=== PATIENT | female | born 1995 | race Caucasian/White ===

== ENCOUNTER 2020-08-29 17:14 | Emergency (ER) | payer OTHER, SELFPAY ==
--- NOTE | ~2020-08-29 | XR_ITS ---
XR chest 2V DATE: 08/29/2020 18:13 INDICATION: Productive cough. Past smoker. TECHNIQUE: PA and lateral views COMPARISON: /PA and lateral chest FINDINGS: Implanted cardiac device is again noted at the inferomedial left anterior chest wall. Normal heart size. No hilar or mediastinal enlargement. No pulmonary infiltrate or consolidation, ple ural effusion or pulmonary vascular congestion or pneumothorax. IMPRESSION: No active cardiopulmonary disease Reviewed, dictated and finalized at location [facility]
[2020-08-29 17:31] VITALS: BP 109/58; PULSE 87; RESP 16; TEMP 37; O2SAT 100
--- NOTE | 2020-08-29 18:03 | ED.URI ---
HPI - URI/Sore Throat General Chief Complaint: Upper Respiratory Infection Stated Complaint: COLD SX Source: patient and RN notes reviewed Mode of arrival: ambulatory Limitations: no limitations History of Present Illness HPI Narrative: This is a 25-year-old white female who presented to urgent care today with complaints of uncontrollable cough, chest and nasal congestion rhinorrhea, sore throat, fever, sinus pain and fatigue. According to patient approximately 1 week ago she contacted her primary care physician who diagnosed her with bronchitis and prescribed her with a Z-Jad. She has also been taking Claritin and [id number] congestion medication with Tessalon Perles. patient noted that her condition has not improved she has 2 days left on a Z-Jad. Patient notes that she does have a history of pneumonia we will complete a chest x-ray on her and complete influenza. Patient notes that she occasionally have shortness of breath but she is a smoker and uses her inhalers. She did note that last night she had a temperature of 100.3. She also was recently checked for Covid with the results being negative. The patient denies CP, palpitation, extremity numbness, lightheadedness, dizziness, constipation, and diarrhea. MD elicited complaint: sore throat, rhinorrhea, nasal congestion and sinus pain Related Data Home Medications Medication Instructions Recorded Confirmed clonazepam 1 mg PO DIRECTED 08/29/20 08/29/20 hydrocodone-acetaminophen 1 tablet PO DIRECTED 08/29/20 08/29/20 Allergies Allergy/AdvReac Type Severity Reaction Status Date / Time gabapentin Allergy Unknown Muscle Verified 08/29/20 17:32 Spasms codeine AdvReac Unknown NAUSEA Verified 08/29/20 17:32 Review of Systems Review of Systems: All systems reviewed & are unremarkable except as noted in HPI and below (10 point system review) [facility] Past Medical History Medical History Chronic pelvic pain in female Depression Endometriosis Endometriosis determined by laparoscopy Surgical History Surgical History H/O: hysterectomy Family History Family History Mother Carcinoma of colon Social History Social History Smoking status: Current every day smoker Tobacco type: cigarettes Alcohol intake: current Exam Narrative: Exam Narrative: GENERAL: This is a well-nourished, well-developed patient, in no apparent distress. HEAD: normocephalic, atraumatic. EYES: PERRL. Sclera clear/white. Vision is grossly intact. EARS: External ears normal, auditory canals clear and without drainage, TMs normal without perforation. Hearing grossly intact. NOSE: External nose normal with no obvious nasal discharge, nares without redness, no rhinorrhea. THROAT: Mucous membranes moist, posterior pharynx clear. NECK: Neck supple, non-tender without lymphadenopathy, masses or thyromegaly. CARDIOVASCULAR: Regular rate and rhythm without murmurs, gallops, or rubs. RESPIRATORY: Clear to auscultation. Breath sounds equal bilaterally. No wheezes, rales, or rhonchi. GASTROINTESTINAL: Abdomen soft, non-tender, nondistended. Bowel sounds are active. No hepato-splenomegaly, or palpable masses. No guarding. SKIN: warm, intact with no suspicious lesions or rash, good texture and turgor. NEURO: awake, alert, and oriented to person, place and time. There were no obvious focal neurologic abnormalities. Steady gait EXTREMITIES: Normal range of motion. No edema. No calf tenderness. Negative Homans sign bilaterally. BACK: Nontender without deformity or crepitance. No flank tenderness. Course Vital Signs Vital signs: Vital Signs Temperature 98.6 F 08/29/20 17:31 Pulse Rate 87 08/29/20 17:31 Respiratory Rate 16 08/29/20 17:31 Blood Pressure 109/5
== END 2020-08-29 18:44 | disposition home or self-care (01) ==
PROVIDERS: Emergency Provider Nurse Practitioner; PCP Internal Medicine
DX: J01.10 Acute frontal sinusitis, unspecified (principal); F17.210 Nicotine dependence, cigarettes, uncomplicated; N80.9 Endometriosis, unspecified
CPT/HCPCS: 71046; 87804; 99213; G0463

== ENCOUNTER 2021-03-13 16:08 | Emergency (ER) | payer OTHER, SELFPAY ==
--- NOTE | ~2021-03-13 | XR_ITS ---
EXAMINATION: XR chest 2V DATE: 03/13/2021 16:38 INDICATION: Left chest pain. Shortness of breath. TECHNIQUE: Frontal and lateral views of the chest were obtained. COMPARISON: Chest 2 views 08/29/2020 FINDINGS: The chest demonstrates clear lungs without pneumonia, pleural effusion, or pneumothorax. Th e heart size is normal. There is an electronic implant in left anterior chest wall. IMPRESSION: 1. No acute cardiopulmonary disease. Reviewed, dictated and finalized at location B.
[2021-03-13 16:15] VITALS: BP 114/71; PULSE 68; RESP 16; TEMP 36.2; O2SAT 100
--- NOTE | 2021-03-13 16:18 | ECG_ITS ---
Measurements Intervals [place] Rate: 66 P: 56 VA: 119 QRS: 85 QRSD: 92 T: 73 QT: 409 QTc: 429 Interpretive Statements SINUS RHYTHM WITH SINUS ARRHYTHMIA WITH SHORT VA INTERVAL BORDERLINE T WAVE ABNORMALITY- HIGH LATERAL LEADS BASELINE ARTIFACT- I, III, AVR, AVL, AVF BORDERLINE ECG Electronically Signed On 03-13-2021 16:21:49 CDT by Osman Means D.O.
[2021-03-13 16:37] LABS: Basophils Absolute Auto 0.1 K/mm3 (0.0-0.1); Basophils Percent Auto 1.2 % (0.2-1.2); Eosinophils Absolute Auto 0.2 K/mm3 (0-0.3); Hematocrit 40.3 % (37.0-47.0); Hemoglobin 13.5 g/dL (12.0-15.0); Lymphocytes Absolute Auto 4.46 K/mm3 (0.9-3.2); Lymphocytes Percent Auto 58.8 % (18.3-44.2); Mean Corpuscular HGB Conc 33.5 g/dl (32-36); Mean Corpuscular Hemoglobin 30.5 pg (26-34); Mean Platelet Volume 10.3 fl (7.4-10.4); Monocytes Absolute Auto 0.4 K/mm3 (0.1-0.6); Monocytes Percent Auto 5.4 % (2.6-8.5); Neutrophils Absolute Auto 2.4 K/mm3 (1.3-6.7); Neutrophils Percent Auto 31.6 % (45.5-73.1); Platelet Count Result 315 k/mm3 (150-375); Red Blood Count 4.43 M/mm3 (4.2-5.4); Red Cell Distribution Width 13.2 % (11.5-14.5); White Blood Count 7.6 K/mm3 (4.5-10.0)
[2021-03-13 16:51] LABS: Anion Gap 6 mmol/L (8-16); Blood Urea Nitrogen 12 mg/dL (7-17); Calcium 9.5 mg/dL (8.4-10.2); Carbon Dioxide 27 mmol/L (22-30); Chloride 108 mmol/L (98-107); Estimated CRCL calculation 118 ml/min; Estimated Glomerular Filt Rate > 60; Glucose 97 mg/dL (65-105); Potassium 3.6 mmol/L (3.4-5.0); Sodium 141 mmol/L (137-145)
[2021-03-13 17:02] LABS: Troponin I < 0.012 ng/mL (0.000-0.034)
[2021-03-13 17:53] VITALS: PULSE 75; RESP 16; O2SAT 100
[2021-03-13 17:54] VITALS: BP 103/52; PULSE 61; RESP 10; O2SAT 100
[2021-03-13 18:00] VITALS: PULSE 80; RESP 28; O2SAT 99
[2021-03-13 18:01] VITALS: BP 104/74; PULSE 82; RESP 14; O2SAT 100
[2021-03-13 18:29] LABS: Prothrombin Time 13.7 Seconds (11.1-14.7)
[2021-03-13 18:30] LABS: Partial Thromboplastin Time 27.4 SECONDS (22.3-36.8)
--- NOTE | 2021-03-13 19:14 | ED.CHESTPAIN ---
HPI - Chest Pain General Chief Complaint: Chest Pain Stated Complaint: left chest radiate to shoulder pain Time Seen by Provider: 03/13/21 16:35 Source: patient Mode of arrival: ambulatory Limitations: no limitations History of Present Illness HPI narrative: Patient is a 25 year old female who presents reporting left sided chest pain x 3 days, reports shortness of breath starting today. Denies exposure to Covid, denies cough, congestion or fever. Patient reports that she has seen Dr. Ritchie in the past for bradycardia. She reports a history of anxiety and migraines. She denies taking otc medication for pain. She denies other complaints. MD complaint: chest pain Related Data Home Medications Medication Instructions Recorded Confirmed clonazepam 1 mg PO DIRECTED 08/29/20 08/29/20 hydrocodone-acetaminophen 1 tablet PO DIRECTED 08/29/20 08/29/20 Allergies Allergy/AdvReac Type Severity Reaction Status Date / Time gabapentin Allergy Unknown Muscle Verified 08/29/20 17:32 Spasms codeine AdvReac Unknown NAUSEA Verified 08/29/20 17:32 Review of Systems Review of Systems: Narrative: CONSTITUTIONAL: Denies fever, chills, or sweats. EYES: Denies visual changes, redness, or discharge. ENT: Denies rhinorrhea, congestion, sore throat, or otalgia. CARDIOVASCULAR: Reports chest pain, denies palpitations or edema. RESPIRATORY: Denies cough or dyspnea. GASTROINTESTINAL: Denies abdominal pain, nausea, vomiting, or diarrhea. GENITOURINARY: Denies dysuria or hematuria. SKIN: Denies rash or itching. MUSCULOSKELETAL: Denies back pain, joint pain, or myalgia. NEUROLOGIC: Denies headache, numbness, dizziness, or weakness. PSYCHIATRIC: Denies anxiety or depression. [facility] Past Medical History Medical History Chronic pelvic pain in female Depression Endometriosis Endometriosis determined by laparoscopy Surgical History Surgical History H/O: hysterectomy Family History Family History Mother Carcinoma of colon Social History Social History (Updated 03/13/21 @ 19:19 by VIVEK Sheikh) Smoking status: Current every day smoker Tobacco type: cigarettes Alcohol intake: current Substance use: current Substance use type: marijuana Comments At the time of signature, I have reviewed and agree with nursing past medical, surgical, social, and family history unless otherwise noted. Please see nursing chart for further information. There is no relevant family history pertinent to the presenting complaint. Exam Narrative: Exam Narrative: GENERAL: Well-appearing, well-nourished, and in no acute distress. HEAD: Normocephalic, atraumatic. EYES: EOMI. No redness or drainage. Conjunctiva are normal. ENT: Mucous membranes pink and moist. NECK: AROM. Supple. No lymphadenopathy. CHEST: No respiratory distress. Clear to auscultation. HEART: Regular rate and rhythm. No murmur appreciated. Normal peripheral pulses. MUSCULOSKELETAL: No bony tenderness. EXTREMITIES: Normal range of motion. No edema. SKIN: Warm, dry, no rash. NEURO: No focal deficits. Alert and oriented x3. Gait steady. PSYCH: Normal affect. No signs of depression or anxiety. Course Reevaluation(s) Reevaluation #1: Patient reports that she is feeling very anxious at this time. 0.5 mg Ativan given, will continue to monitor. Reevaluation #2: Patient is feeling much better at this time. Discussed discharge, which patient agrees. Vital Signs Vital signs: Vital Signs Temperature 36.2 C L 03/13/21 16:15 Pulse Rate 68 03/13/21 16:15 Respiratory Rate 16 03/13/21 16:15 Blood Pressure 114/71 03/13/21 16:15 Pulse Oximetry 100 03/13/21 16:15 Temperature 36.2 C L 03/13/21 16:15 Pulse Rate 82 03/13/21 20:59 Respiratory Rate 18 03/13/21 20:59 Blood Pressure 13
[2021-03-13 19:49] LABS: Troponin I < 0.012 ng/mL (0.000-0.034)
[2021-03-13] MEDS: LORazepam INJ (*CRX) 2 MG/ML VIAL 0.5 MG IV PUSH (20:03)
[2021-03-13 20:59] VITALS: BP 130/62; PULSE 82; RESP 18; O2SAT 99
== END 2021-03-13 21:01 | disposition home or self-care (01) ==
PROVIDERS: Emergency Medicine; Emergency Provider Nurse Practitioner; PCP Internal Medicine
DX: R07.9 Chest pain, unspecified (principal); F41.9 Anxiety disorder, unspecified; F32.9 Major depressive disorder, single episode, unspecified; N80.9 Endometriosis, unspecified; F17.210 Nicotine dependence, cigarettes, uncomplicated; R94.31 Abnormal electrocardiogram [ECG] [EKG]
CPT/HCPCS: 36415; 71046; 80048; 84484; 85025; 85610; 85730; 93005; 96374; 99284; J2060

== ENCOUNTER 2022-02-27 10:36 | Outpatient (CLI) | payer OTHER, SELFPAY ==
--- NOTE | 2022-02-27 12:34 | WPDNEUROLOGY ---
Neurology EEG Report General Information Date of Study: 02/27/22 TEST eeg DIAGNOSIS syncope CONDITION OF RECORDING awake drowsy and sleep EEG NUMBER [id number] CLINICAL HISTORY patient reports last week she became confused, started convulsing and foaming at the mouth. Was very lethargic and confused for 2 days afterwards EEG DESCRIPTION basic resting occipital frequency consists of well-organized low voltage 9 to 11 hertz per 2nd alpha admixed with low-voltage 15 to 18 hertz per 2nd beta. low-voltage beta activity seen diffusely during drowsiness mixed with waxing waning posterior alpha rhythm. Bilateral symmetrical sleep activity seen during sleep with normal and symmetrical sleep spindles. Photic stimulation produced normal drive. Hyperventilation not done. Non paroxysmal. Nonfocal. Nonlateralizing. IMPRESSION Normal recall vb
== END 2022-02-27 10:37 | disposition home or self-care (01) ==
LOC: ANHNEURO 10:42
PROVIDERS: PCP Internal Medicine; Visit Provider Internal Medicine
DX: R55 Syncope and collapse (principal); G40.89 Other seizures
CPT/HCPCS: 95816